=== PATIENT | female | born 1970 ===

== ENCOUNTER 2019-01-22 01:22 | Emergency (ER) | payer OTHER ==
[2019-01-22 01:35] VITALS: RESP 18; TEMP 98.6; O2SAT 100
[2019-01-22] MEDS ORDERED: Sodium Chloride 0.9% 1,000 ML IV STA (02:08)
--- NOTE | 2019-01-22 03:07 | ED PDOC ---
HPI: General Adult Time Seen by Provider: 01/22/19 01:48 Chief Complaint (Nursing): Palpitations History Per: Patient Additional Complaint(s): Pt. states at approximately 0015 she began to feel nauseous, dizzy, faint, and had palpitations. Also reports having L sided muffled hearing. Pt. states she has had heavy vaginal bleeding since Friday and bleeding improved today. Pt. states she gets her period monthly and 3-4 years ago she had to see an OBGYN due to heavy vaginal bleeding but was told everything was normal. For the past year her periods have been normal. Denies previous blood transfusions, headache, head injury, fever, chills, visual changes, recent illness. Past Medical History Reviewed: Historical Data, Nursing Documentation, Vital Signs Vital Signs: Last Vital Signs Temp 98.6 F 01/22/19 01:33 Pulse 90 01/22/19 01:33 Resp 18 01/22/19 01:33 BP 161/106 H 01/22/19 01:33 Pulse Ox 100 01/22/19 01:33 - Medical History PMH: HTN - Surgical History Surgical History: No Surg Hx - Family History Family History: States: No Known Family Hx - Living Arrangements Living Arrangements: With Family - Home Medications Home Medications: Ambulatory Orders Medication Instructions Recorded Metoclopramide [Reglan] 10 mg PO TID PRN #10 tab 01/22/19 - Allergies Allergies/Adverse Reactions: Allergies Allergy/AdvReac Type Severity Reaction Status Date / Time No Known Allergies Allergy Verified 01/22/19 01:35 Review of Systems ROS Statement: Except As Marked, All Systems Reviewed And Found Negative Cardiovascular: Positive for: Palpitations Gastrointestinal: Positive for: Nausea Neurological: Positive for: Dizziness Physical Exam - Physical Exam Appears: Positive for: Well, Non-toxic, No Acute Distress Skin: Positive for: Normal Color, Warm. Negative for: Rash Eye Exam: Positive for: Normal appearance, EOMI, PERRL. Negative for: Nystagmus ENT: Positive for: Normal ENT Inspection, Hearing Is (grossly intact) Cardiovascular/Chest: Positive for: Regular Rate, Rhythm. Negative for: Murmur, Tachycardia Respiratory: Positive for: Normal Breath Sounds. Negative for: Respiratory Distress Gastrointestinal/Abdominal: Positive for: Soft. Negative for: Tenderness Neurological/Psych: Positive for: Awake, Alert, Oriented (x3), Gait (steady, unassisteed) - Laboratory Results Result Diagrams: 01/22/19 03:10 01/22/19 03:10 - ECG ECG: Positive for: Interpreted By Me ECG Rhythm: Negative for: ST/T Changes Rate: 86 O2 Sat by Pulse Oximetry: 100 - Progress ED Course And Treament: Labs, CT head w/o contrast, zofran 4mg IV, antivert 50mg PO, IV NS bolus x 1 ordered. Pt. placed on monitor. 0309 CT Head Findings: Normal size of the ventricles and extra-axial spaces for the patient's age. Normal white matter tracts of the supratentorial brain. Normal basal ganglia and thalami. Normal brainstem. Normal cerebellum. There is no demonstrated extra-axial, intraparenchymal, or intraventricular hemorrhage. There are no findings of an acute ischemic infarction. Normal calvarium. There is no demonstrated fracture. Normal soft tissue structures. Normal visualized paranasal sinuses. IMPRESSION: Normal unenhanced CT scan of the brain. On re-evaluation, pt. reports dizziness has improved. Repeat neuro exam is non- focal. Gait steady, unassisted. Agrees with plan and care. Advised to f/u with PMD for further evaluation but is to return to ED immediately if symptoms worsen. Disposition - Clinical Impression Clinical Impression: Dizziness - Patient ED Disposition Is Patient to be Admitted: No - Disposition Referrals: Lacy Montes [Outside] Disposition: Routine/Home Disposition Time: 03:15 Condition: IMPROVED Additional Instructions: FOLLOW UP WITH YOUR DOCTOR FOR FURTHER EVALUATION RETURN TO ED IMMEDIATELY IF SYMPTOMS WORSEN CORINNE SAMSON, thank you for letting us take care of you today. Your provider was Cassi Jesus MD and you were treated for PALPITATIONS, DIZZINESS, NAUSEA. The emergency medical care you received today was directed at your acute symptoms. If you were prescribed any medication, please fill it and take as directed. It may take several days for your symptoms to resolve. Return to the Emergency Department if your symptoms worsen, do not improve, or if you have any other problems. Please contact your doctor or call one of the physicians/clinics you have been referred to that are listed on the Patient Visit Information form that is included in your discharge packet. Bring any paperwork you were given at discharge with you along with any medications you are taking to your follow up visit. Our treatment cannot replace ongoing medical care by a primary care provider outside of the emergency department. Thank you for allowing the [facility] team to be part of your care today. If you had an X-Ray or CT scan: A Radiologist will review the ED reading if any change in treatment is needed we will contact you. If you had a blood, urine, or wound culture: It will take several days for the results, if any change in treatment is needed we will contact you. If you had an STI test: It will take 48 hours for the results. Please call after 1 week if you have not heard back. Prescriptions: Metoclopramide [Reglan] 10 mg PO TID PRN #10 tab PRN Reason: nausea or headache Instructions: Vertigo (a Type of Dizziness) (DC) Forms: [employer] (Japanese) Print Language: PASHTO
[2019-01-22 03:27] LABS: PROTHROMBIN TIME 11.4 Seconds (9.8-13.1)
[2019-01-22 03:30] LABS: BASO % 0.6 % (0.0-2.0); EOS # 0.1 K/uL (0.0-0.7); EOS % 1.1 % (0.0-4.0); LYMPH # 1.4 K/uL (1.0-4.3); LYMPH % 17.8 % (20.0-40.0); MEAN CELL VOLUME 81.8 fl (81.0-99.0); MEAN CORPUSCULAR HEMOGLOBIN 27.6 pg (27.0-31.0); MEAN CORPUSCULAR HGB CONC 33.8 g/dL (33.0-37.0); MONO # 0.4 K/uL (0.0-0.8); MONO % 5.6 % (0.0-10.0); NEUT # 5.9 K/uL (1.8-7.0); NEUT % 74.9 % (50.0-75.0); NRBC % 0.1 % (0.0-0.0); PARTIAL THROMBOPLASTIN TIME 31.3 Seconds (25.6-37.1); RBC 3.97 Mil/uL (3.80-5.20); RED CELL DISTRIBUTION WIDTH 19.2 % (11.5-14.5); WHITE BLOOD COUNT 7.8 K/uL (4.8-10.8)
[2019-01-22 03:31] LABS: ALB/GLOB RATIO 1.4 (1.0-2.1); ALBUMIN 4.3 g/dL (3.5-5.0); ALT/SGPT 37 U/L (9-52); AST/SGOT 35 U/L (14-36); BLOOD UREA NITROGEN 19 mg/dl (7-17); CALCIUM 9.3 mg/dL (8.4-10.2); GFR NON-AFRICAN AMERICAN > 60
[2019-01-22 05:33] VITALS: PULSE 86
[2019-01-22 05:35] VITALS: BP 145/74
--- NOTE | 2019-01-22 09:37 | CT ---
Date of service: 01/22/2019 PROCEDURE: CT HEAD WITHOUT CONTRAST. HISTORY: Dizziness COMPARISON: No prior study available comparison. TECHNIQUE: Axial computed tomography images were obtained through the head/brain without intravenous contrast. Radiation dose: Total exam DLP = 753.84 mGy-cm. This CT exam was performed using one or more of the following dose reduction techniques: Automated exposure control, adjustment of the mA and/or kV according to patient size, and/or use of iterative reconstruction technique. FINDINGS: HEMORRHAGE: No acute parenchymal, subarachnoid or extra-axial hemorrhage. Small calcifications seen along the cortical surface and/or subarachnoid space in the region of the left circular sulcus loss Mild generalized volume loss. BRAIN: There appears to be mild chronic periventricular white matter ischemic changes VENTRICLES: No obstructive hydrocephalus. CALVARIUM: Calvarium intact PARANASAL SINUSES: Frontal sinuses are underpneumatized/hypoplastic. There also appears to be mild mucosal thickening superior margin left maxillary antrum. MASTOID AIR CELLS: Unremarkable as visualized. No inflammatory changes. OTHER FINDINGS: None. IMPRESSION: No acute intracranial hemorrhage. Minor chronic white matter ischemic changes. Mild generalized volume
--- NOTE | 2019-01-22 09:40 | CARD ---
APPROVED REPORT Date of service: 01/22/2019 EKG Measurement Heart [id number] <Conclusion> Normal sinus rhythm Nonspecific ST abnormality Abnormal ECG
== END 2019-01-22 05:12 | disposition home or self-care (01) ==
LOC: H.ER 01:22
DX: R42 Dizziness and giddiness (principal); I10 Essential (primary) hypertension
CPT/HCPCS: 70450; 80053; 84443; 84484; 85025; 85610; 85730; 86850; 86900; 93005; 96360; 96374; 99283; J2405; J7030